=== PATIENT | male | born 1940 | race Caucasian/White ===

== ENCOUNTER 2020-09-05 16:17 | Observation (INO) ==
[2020-09-05 16:52] LABS: Basophils # 0.1 K/mcL (0.0-0.2); Basophils % 0.8 %; Eosinophils # 0.3 K/mcL (0.0-0.6); Eosinophils % 3.2 %; Hematocrit 42.9 % (37.5-50.1); Hemoglobin 14.3 g/dL (12.9-16.9); Immature Granulocytes % 0.2 % (0-4); Lymphocytes # 3.4 K/mcL (0.6-4.6); Lymphocytes % 34.2 %; Mean Corpuscular HGB Conc 33.3 g/dL (31.6-35.5); Mean Corpuscular Hemoglobin 31.1 pg (28.0-33.3); Mean Corpuscular Volume 93.3 fL (83.0-100.0); Mean Platelet Volume 9.7 fL (9.4-12.4); Monocytes # 1.1 K/mcL (0.0-1.3); Monocytes % 10.8 %; Neutrophils # 5.1 K/mcL (1.6-8.9); Platelet Count 392 K/mcL (140-400); Red Cell Distribution Width 13.5 % (11.5-14.5); Segmented Neutrophils % 50.8 %
[2020-09-05 17:13] LABS: BUN/Creatinine Ratio 17 (6-26); Blood Urea Nitrogen 21 mg/dL (8-23); Calcium 9.6 mg/dL (8.6-10.3); Carbon Dioxide 30 mEq/L (23-29); Chloride 102 mEq/L (98-107); Glucose 116 mg/dL (70-105); Osmolality,Calculated 290 (280-300); Potassium 3.7 mEq/L (3.5-5.1); Sodium 138 mEq/L (136-145); Troponin I < 0.03 ng/mL (< 0.04); eGFR For African Americans > 60 (> 60); eGFR For Non-African Americans 57 (> 60)
[2020-09-05] MEDS ORDERED: Aspirin 325 MG TABLET PO ONE (19:56)
[2020-09-05] MEDS ORDERED: Naloxone 0.4 MG/ML INJ IVP PRN (20:01)
[2020-09-05] MEDS ORDERED: Ondansetron ODT 4 MG TAB.RAPDIS SL PRN (20:01)
[2020-09-05] MEDS ORDERED: Nitroglycerin 0.4 MG TAB.SUBL SL PRN (20:37)
[2020-09-05] MEDS ORDERED: Dextrose Gel 15 GM/37.5 ML TUBE PO PRN ×2 (20:39)
[2020-09-05] MEDS ORDERED: D5% in Water 1,000 ML IVC PRN (20:39)
[2020-09-05] MEDS ORDERED: *HR* Dextrose 50 % in Water (Vial) 50 ML VIAL IVP PRN (20:39)
[2020-09-05] MEDS ORDERED: Insulin LISPRO 300 UNITS/3 ML VIAL SQ SCH (21:00)
[2020-09-05] MEDS ORDERED: Isovue-370 500 ML BOTTLE IVP ONE (22:55)
[2020-09-06] MEDS ORDERED: Regadenoson 0.4 MG/5 ML SYRINGE IVP ONE (05:37)
[2020-09-06] MEDS ORDERED: *HR* Enoxaparin 40 MG/0.4 ML SYRINGE SQ SCH (06:00)
[2020-09-06] MEDS ORDERED: Insulin LISPRO 300 UNITS/3 ML VIAL SQ SCH (07:30)
[2020-09-06 07:38] LABS: BUN/Creatinine Ratio 23 (6-26); Blood Urea Nitrogen 23 mg/dL (8-23); Calcium 10.2 mg/dL (8.6-10.3); Carbon Dioxide 27 mEq/L (23-29); Chloride 103 mEq/L (98-107); Glucose 129 mg/dL (70-105); Osmolality,Calculated 293 (280-300); Potassium 4.4 mEq/L (3.5-5.1); Sodium 139 mEq/L (136-145); Troponin I < 0.03 ng/mL (< 0.04); eGFR For African Americans > 60 (> 60); eGFR For Non-African Americans > 60 (> 60)
[2020-09-06 07:42] LABS: Hematocrit 49.7 % (37.5-50.1); Mean Corpuscular Volume 96.9 fL (83.0-100.0); Mean Platelet Volume 10.4 fL (9.4-12.4); Platelet Count 449 K/mcL (140-400); Red Blood Count 5.13 M/mcL (4.19-5.50); Red Cell Distribution Width 13.5 % (11.5-14.5); White Blood Count 9.5 K/mcL (4.3-11.1)
[2020-09-06 07:43] LABS: Hemoglobin 16.4 g/dL (12.9-16.9)
[2020-09-06] MEDS ORDERED: tiZANidine 4 MG TABLET PO PRN (08:49)
[2020-09-06] MEDS ORDERED: Finasteride 5 MG TABLET PO SCH (09:00)
[2020-09-06] MEDS ORDERED: Aspirin 81 MG TAB.CHEW PO SCH (09:00)
[2020-09-06 11:44] VITALS: BP 131/80
== END 2020-09-06 14:25 | disposition home or self-care (01) ==
LOC: 3BNU 16:17 → EMEROOARM 16:17 → SUATTDRO 20:40 → 3BNU 21:20
PROVIDERS: ADMIT Internal Medicine; ATTEND Internal Medicine